=== PATIENT | male | born 1975 | race Caucasian/White ===

== ENCOUNTER 2017-11-06 20:05 | Emergency (ER) | payer OTHER, SELFPAY ==
[2017-11-06 20:09] VITALS: BP 136/95; PULSE 102; RESP 18; TEMP 36.8; O2SAT 100; BMI 39.9
--- NOTE | 2017-11-06 20:22 | XR_ITS ---
XR knee LT 3V Ordering Physician: Gigi Anglin MD Patient Age: 42 years: Male HISTORY: ITS.REASON: painleft knee pain TECHNIQUE: 3 views left knee COMPARISON :03/26/2017 FINDINGS No acute fracture On close inspection on the oblique view there is subtle focal contour irregularity at medial femoral condyle which may reflect a very minor shallow osteochondral irregularity here reflecting early degenerative change. Also note is borderline narrowing at the medial compartment on AP Non- weight-bearing. Joint fluid upper normal to possibly scant increased on lateral view. Lateral compartment unremarkable patella normal position. IMPRESSION: No fracture. . No discrete acute findings However on the oblique view I would suggest a very subtle contour irregularity & subtle undulation, suggestion of a very minor shallow osteochondral irregularity at medial femoral condyle. Likely reflecting early degenerative changes at medial compartment
--- NOTE | 2017-11-06 20:42 | HMH.EDLOEX ---
ED Disposition Clinical Impression: Left knee sprain Qualifiers: Encounter type: initial encounter Involved ligament of knee: unspecified ligament Qualified Code(s): S83.92XA - Sprain of unspecified site of left knee, initial encounter Disposition: Home, Self-Care Condition on Discharge: Good Instructions: DI for Knee Sprain Additional Instructions: limited wt bearing and see pcp and ortho for follow up - Critical Care Critical Care Time: No Attestation: On 11/06/17, the high probability of a clinically significant, sudden or life threatening deterioration of the following system(s) required my full and direct attention, intervention and personal management. The time I documented below is in addition to time spent performing reported procedures but includes the following listed in this critical care notation. Medical Decision Making - Medical Records Medical records reviewed: Yes: I reviewed the patient's medical records. - Regan Inquiry Pt receiving controlled substance: No Vital Signs: 11/06/17 20:09 Temperature 98.3 F Temperature Source Temporal Artery Scan Pulse Rate [Right Radial] 102 H Respiratory Rate 18 Blood Pressure [Right Arm] 136/95 Blood Pressure Mean [Right Arm] 108 Blood Pressure Source [Right Arm] Automatic Cuff Blood Pressure Position [Right Arm] Sitting 02 Sat by Pulse Oximetry 100 Oxygen Delivery Method Room Air Orders (Tests/Meds): ORDERS Category Date Time Status XR knee LT 3V Stat Exams 11/06/17 20:22 Taken - Radiology Data #1 Image(s): Knee Image Reviewed: Yes I reviewed the patient's radiology image Preliminary Findings: No Fracture Seen Lower Extremity Injury HPI - General Chief Complaint: Extremity Injury, Lower Stated Complaint: ao [id number] pain l knee Time Seen by Provider: 11/06/17 20:42 Mode of Arrival: Ambulatory Source of Information: Patient, Significant Other, Medical Record Limitations: No Limitations Description of Symptoms (Recalled from ER Triage Doc. by RN): left knee pain after pop getting on trailer. about 1600, has iced , and rested - History of Present Illness HPI Narrative: lt knee injury with medial aspect popping and then pain with wt bearing and mov - MD complaint: knee injury Onset (ago): hour(s) Injury: Left: knee Type of Injury: hyperextension Place: home Severity: moderate Exacerbating factors: weight bearing, movement, palpation Associated symptoms: snap/pop sensation, able to partially bear weight Other symptoms: none Treatments prior to arrival: NSAIDS - Related Data Home Medications Medication Instructions Recorded Confirmed Amlodipine Besylate [Norvasc 5mg 5 mg PO HS 11/06/17 11/06/17 tablet] Lisinopril [Lisinopril 10mg Tab] 10 mg PO DAILY 11/06/17 11/06/17 Meclizine HCl [Antivert 25mg 25 mg PO DIRECTED 11/06/17 11/06/17 tablet] Oxaprozin [Daypro] 600 mg PO BID 11/06/17 11/06/17 Tamsulosin HCl [Flomax 0.4mg 0.8 mg PO HS 11/06/17 11/06/17 capsule] Tizanidine HCl [Zanaflex] 4 mg PO BID 11/06/17 11/06/17 Allergies Allergy/AdvReac Type Severity Reaction Status Date / Time cortisone [CORTISONE] Allergy Severe S-ANAPHYLAX Unverified 07/20/17 14:25 IS prednisone [PREDNISONE] Allergy Severe S-ANAPHYLAX Unverified 07/20/17 14:25 IS ketorolac [From TORADOL] Allergy Mild NA-NAUSEA/V Unverified 07/20/17 14:25 OMITING tramadol [TRAMADOL] Allergy Mild NA-NAUSEA/V Unverified 07/20/17 14:25 OMITING H History I have reviewed the patient's past medical history: Yes Medical History: Denies:: Cancer, Diabetes Mellitus Type 1, Diabetes Mellitus Type 2, MRSA Amputation: No Fractures: No - Social History Smoking Status: Current every day smoker Tobacco Type: cigarettes # Packs/Day (cigarettes): 1 Alcohol Intake: never - Psychiatric History Expresses thoughts of harming self/others: None Suicide Plan Description: No Plan ROS Obtained: Yes All systems reviewe
--- NOTE | 2017-11-06 20:47 | ED_ITS ---
ED Disposition Clinical Impression: Left knee sprain Qualifiers: Encounter type: initial encounter Involved ligament of knee: unspecified ligament Qualified Code(s): S83.92XA - Sprain of unspecified site of left knee, initial encounter Disposition: Home, Self-Care Condition on Discharge: Good Instructions: DI for Knee Sprain Additional Instructions: limited wt bearing and see pcp and ortho for follow up - Critical Care Critical Care Time: No Attestation: On 11/06/17, the high probability of a clinically significant, sudden or life threatening deterioration of the following system(s) required my full and direct attention, intervention and personal management. The time I documented below is in addition to time spent performing reported procedures but includes the following listed in this critical care notation. Medical Decision Making - Medical Records Medical records reviewed: Yes: I reviewed the patient's medical records. - Regan Inquiry Pt receiving controlled substance: No Vital Signs: 11/06/17 20:09 Temperature 98.3 F Temperature Source Temporal Artery Scan Pulse Rate [Right Radial] 102 H Respiratory Rate 18 Blood Pressure [Right Arm] 136/95 Blood Pressure Mean [Right Arm] 108 Blood Pressure Source [Right Arm] Automatic Cuff Blood Pressure Position [Right Arm] Sitting 02 Sat by Pulse Oximetry 100 Oxygen Delivery Method Room Air Orders (Tests/Meds): ORDERS Category Date Time Status XR knee LT 3V Stat Exams 11/06/17 20:22 Taken - Radiology Data #1 Image(s): Knee Image Reviewed: Yes I reviewed the patient's radiology image Preliminary Findings: No Fracture Seen Lower Extremity Injury HPI - General Chief Complaint: Extremity Injury, Lower Stated Complaint: ao [id number] pain l knee Time Seen by Provider: 11/06/17 20:42 Mode of Arrival: Ambulatory Source of Information: Patient, Significant Other, Medical Record Limitations: No Limitations Description of Symptoms (Recalled from ER Triage Doc. by RN): left knee pain after pop getting on trailer. about 1600, has iced , and rested - History of Present Illness HPI Narrative: lt knee injury with medial aspect popping and then pain with wt bearing and mov - MD complaint: knee injury Onset (ago): hour(s) Injury: Left: knee Type of Injury: hyperextension Place: home Severity: moderate Exacerbating factors: weight bearing, movement, palpation Associated symptoms: snap/pop sensation, able to partially bear weight Other symptoms: none Treatments prior to arrival: NSAIDS - Related Data Home Medications Medication Instructions Recorded Confirmed Amlodipine Besylate [Norvasc 5mg 5 mg PO HS 11/06/17 11/06/17 tablet] Lisinopril [Lisinopril 10mg Tab] 10 mg PO DAILY 11/06/17 11/06/17 Meclizine HCl [Antivert 25mg 25 mg PO DIRECTED 11/06/17 11/06/17 tablet] Oxaprozin [Daypro] 600 mg PO BID 11/06/17 11/06/17 Tamsulosin HCl [Flomax 0.4mg 0.8 mg PO HS 11/06/17 11/06/17 capsule] Tizanidine HCl [Zanaflex] 4 mg PO BID 11/06/17 11/06/17 Allergies Allergy/AdvReac Type Severity Reaction Status Date / Time cortisone [CORTISONE] Allergy Severe S-ANAPHYLAX Unverified 07/20/17 14:25 IS prednisone [PREDNISONE] Allergy Severe S-ANAPHYLAX Unverified 1
[2017-11-06 21:20] VITALS: BP 136/95; PULSE 105; RESP 18; TEMP 36.8; O2SAT 100
== END 2017-11-06 21:23 | disposition home or self-care (01) ==
PROVIDERS: Emergency Provider Emergency Medicine; Family Provider Family Medicine
DX: S83.92XA Sprain of unspecified site of left knee, initial encounter (principal); X50.0XXA Overexertion from strenuous movement or load, initial encounter
CPT/HCPCS: 29505; 73562; 99282

== ENCOUNTER 2018-12-01 12:00 | Emergency (ER) | payer OTHER, SELFPAY ==
[2018-12-01 12:10] VITALS: BP 138/94; PULSE 92; RESP 16; TEMP 36.7; O2SAT 98; BMI 42.3
--- NOTE | 2018-12-01 12:19 | CT_ITS ---
CT abdomen pelvis wo con CLINICAL INDICATION: Severe right flank pain ITS.REASON: severe flank pain ORDERING PHYSICIAN: Gigi Levi MD PATIENT AGE: 43 years COMPARISON: 06/13/2017 TECHNIQUE: Axial images obtained with sagittal and coronal reformats. All CT scans at the facility use one or more dose reduction, viz: automated exposure control, ma/kV adjustment per patient size (including targeted exams where dose is matched to indication, i.e. head), or iterative reconstruction technique. PROCEDURE: Oral Contrast: None IV Contrast: None . FINDINGS: Lower thorax: No acute finding The liver, spleen, adrenal glands, gallbladder, and pancreas have an unremarkable appearance. There are small punctate bilateral renal calculi in both mid and upper pole of both kidneys measuring up to 3 mm in the lower pole on both sides. No hydronephrosis. No ureteral calculi. No evidence of appendicitis. There are right-sided diverticula within the ascending colon but no evidence of diverticulitis. There is diverticulosis also the descending and sigmoid colon with no evidence of diverticulitis. No pelvic mass abnormal fluid collection or focal inflammatory change of the pelvis. There are nondistended fluid-filled loops of small bowel in the abdomen and pelvis. These are nonspecific but could be seen with enteritis. No intestinal obstruction or free air. No acute bony anomalies. IMPRESSION: 1. Nonobstructing bilateral renal calculi. 2. Possible enteritis
[2018-12-01 12:20] LABS: Microscopic, Urine URINE MICROSCOPIC (MICROSCOPIC)
--- NOTE | 2018-12-01 12:20 | HMH.EDGENADL ---
ED Disposition Clinical Impression: Flank pain, Nephrolithiasis Disposition: Home, Self-Care Condition on Discharge: Good Prescriptions: Hydrocodone/Acetaminophen [[place] 7.5-325 Tablet] 1 tab PO QID PRN 3 Days #10 tab PRN Reason: Moderate Pain Promethazine HCl [Phenergan 12.5mg tablet] 12.5 mg PO Q6H PRN 3 Days #10 tab PRN Reason: Nausea And Vomiting Referrals: Xander Avery [Referring] - Time of Disposition: 13:41 - Critical Care Critical Care Time: No Attestation: On , the high probability of a clinically significant, sudden or life threatening deterioration of the following system(s) required my full and direct attention, intervention and personal management. The time I documented below is in addition to time spent performing reported procedures but includes the following listed in this critical care notation. Medical Decision Making - Medical Records Medical records reviewed: Yes: I reviewed the patient's medical records. - Regan Inquiry Pt receiving controlled substance: Yes Regan was queried for this patient: Yes Reference #:: [id number] Risks and benefits of using a controlled substance: were not discussed with pt by me Vital Signs: 12/01/18 12:10 Temperature 98.1 F Temperature Source Oral Pulse Rate [Left Radial] 92 H Respiratory Rate 16 Blood Pressure [Right Arm] 138/94 H Blood Pressure Mean [Right Arm] 108 Blood Pressure Source [Right Arm] Automatic Cuff Blood Pressure Position [Right Arm] Sitting 02 Sat by Pulse Oximetry 98 Oxygen Delivery Method Room Air - Lab Data Lab results reviewed: Yes: I reviewed the patient's lab results. Lab Results 12/01/18 12:05: Urine Color Yellow, Urine Appearance Clear, Urine pH 6.0, Ur Specific [place] 1.020, Urine Protein Negative, Urine Glucose (UA) Negative, Urine Ketones Negative, Urine Blood Negative, Urine Nitrate Negative, Urine Bilirubin Negative, Urine Urobilinogen 0.2, Ur Leukocyte Esterase Negative, Urine WBC 3-5, Urine Bacteria Trace, Urine Mucus Trace 12/01/18 12:10: WBC 7.5, RBC 4.73, Hgb 13.5 L, Hct 41.2 L, MCV 87.2, MCH 28.6, MCHC 32.8, RDW 13.5, Plt Count 184, MPV 10.1, Neut % (Auto) 63.5, Lymph % (Auto) 28.8, [place] % (Auto) 4.9, Eos % (Auto) 2.1, Baso % (Auto) 0.7, Neut # (Auto) 4.8, Lymph # (Auto) 2.2, [place] # (Auto) 0.4, Eos # (Auto) 0.2, Baso # (Auto) 0.1 12/01/18 12:10: Sodium 137, Potassium 3.7, Chloride 101, Carbon Dioxide 27, Anion Gap 12.7, BUN 13, Creatinine 1.01, Estimated Creat Clear 81, Estimated GFR 80, Est GFR ( Amer) 97, Glucose 94, Calcium 9.5, Total Bilirubin 0.3, AST 16, ALT 35, Alkaline Phosphatase 86, Total Protein 7.4, Albumin 4.1, Globulin 3.3 H, Albumin/Globulin Ratio 1.2 Result diagrams: 12/01/18 12:10 12/01/18 12:10 Orders (Tests/Meds): ED MEDICATIONS Discontinued Medications Generic Name Dose Route Start Last Admin Trade Name Vernell PRN Reason Stop Dose Admin Hydromorphone HCl 1 mg 12/01/18 12:37 12/01/18 12:39 Dilaudid 2mg/Ml Syringe IV 12/01/18 12:38 1 mg ONCE ONE Administration Ondansetron HCl 8 mg 12/01/18 12:37 12/01/18 12:39 Zofran 4mg/2ml Vial IV 12/01/18 12:38 8 mg ONCE ONE Administration General Adult HPI - General Stated complaint: kidney stones Time Seen by Provider: 12/01/18 12:20 Mode of Arrival: Ambulatory Source of Information: Patient, Spouse Limitations: No Limitations Description of Symptoms (Recalled from ER Triage Doc. by RN): to ed per pvt car with c/o rt flank pain radiating to rlq starting last night pt seen approx 1 week ago and dx with kidney stones. +nausea, +vomiting. cpta none - History of Present Illness HPI narrative: recent lithotripsy, R sided stones, trouble with a 4 mm calculus which has been slow to pass. appt with urology is in 10-12 days. Pain too great this am - Related Data Home Medications Medication Instructions Recorded Confirmed Amlodipine Besylate [Norvasc 5mg 5 mg PO HS 11/06/17 12/01/18 tablet] L
[2018-12-01 12:25] LABS: Appearance,Urine CLEAR (Clear); Bilirubin,Urine Negative (Negative); Blood, Urine Negative (Negative); Color,Urine YELLOW (Yellow); Glucose,Urine (UA) Negative (Negative); Ketones,Urine Negative (Negative); Leukocyte Esterase,Urine Negative (Negative); Nitrate,Urine Negative (Negative); Protein,Urine Negative (Negative); Urobilinogen,Urine 0.2 EU/dl (0.2)
--- NOTE | 2018-12-01 12:25 | ED_ITS ---
ED Disposition Clinical Impression: Flank pain, Nephrolithiasis Disposition: Home, Self-Care Condition on Discharge: Good Prescriptions: Hydrocodone/Acetaminophen [[place] 7.5-325 Tablet] 1 tab PO QID PRN 3 Days #10 tab PRN Reason: Moderate Pain Promethazine HCl [Phenergan 12.5mg tablet] 12.5 mg PO Q6H PRN 3 Days #10 tab PRN Reason: Nausea And Vomiting Referrals: Xander Avery [Referring] - Time of Disposition: 13:41 - Critical Care Critical Care Time: No Attestation: On , the high probability of a clinically significant, sudden or life threatening deterioration of the following system(s) required my full and direct attention, intervention and personal management. The time I documented below is in addition to time spent performing reported procedures but includes the following listed in this critical care notation. Medical Decision Making - Medical Records Medical records reviewed: Yes: I reviewed the patient's medical records. - Regan Inquiry Pt receiving controlled substance: Yes Regna was queried for this patient: Yes Reference #:: [id number] Risks and benefits of using a controlled substance: were not discussed with pt by me Vital Signs: 12/01/18 12:10 Temperature 98.1 F Temperature Source Oral Pulse Rate [Left Radial] 92 H Respiratory Rate 16 Blood Pressure [Right Arm] 138/94 H Blood Pressure Mean [Right Arm] 108 Blood Pressure Source [Right Arm] Automatic Cuff Blood Pressure Position [Right Arm] Sitting 02 Sat by Pulse Oximetry 98 Oxygen Delivery Method Room Air - Lab Data Lab results reviewed: Yes: I reviewed the patient's lab results. Lab Results 12/01/18 12:05: Urine Color Yellow, Urine Appearance Clear, Urine pH 6.0, Ur Specific [place] 1.020, Urine Protein Negative, Urine Glucose (UA) Negative, Uri ne Ketones Negative, Urine Blood Negative, Urine Nitrate Negative, Urine Bilirubin Negative, Urine Urobilinogen 0.2, Ur Leukocyte Esterase Negative, Urine WBC 3-5, Urine Bacteria Trace, Urine Mucus Trace 12/01/18 12:10: WBC 7.5, RBC 4.73, Hgb 13.5 L, Hct 41.2 L, MCV 87.2, MCH 28.6, MCHC 32.8, RDW 13.5, Plt Count 184, MPV 10.1, Neut % (Auto) 63.5, Lymph % (Auto) 28.8, [place] % (Auto) 4.9, Eos % (Auto) 2.1, Baso % (Auto) 0.7, Neut # (Auto) 4.8, Lymph # (Auto) 2.2, [place] # (Auto) 0.4, Eos # (Auto) 0.2, Baso # (Auto) 0.1 12/01/18 12:10: Sodium 137, Potassium 3.7, Chloride 101, Carbon Dioxide 27, Anio n Gap 12.7, BUN 13, Creatinine 1.01, Estimated Creat Clear 81, Estimated GFR 80, Est GFR ( Amer) 97, Glucose 94, Calcium 9.5, Total Bilirubin 0.3, AST 16, ALT 35, Alkaline Phosphatase 86, Total Protein 7.4, Albumin 4.1, Globulin 3.3 H, Albumin/Globulin Ratio 1.2 Result diagrams: 12/01/18 12:10 12/01/18 12:10 Orders (Tests/Meds): ED MEDICATIONS Discontinued Medications Generic Name Dose Route Start Last Admin Trade Name Vernell PRN Reason Stop Dose Admin Hydromorphone HCl 1 mg 12/01/18 12:37 12/01/18 12:39 Dilaudid 2mg/Ml Syringe IV 12/01/18 12:38 1 mg ONCE ONE Administration Ondansetron HCl 8 mg 12/01/18 12:37 12/01/18 12:39 Zofran 4mg/2ml Vial IV 12/01/18 12:38 8 mg ONCE ONE Administration General Adult HPI - General Stated complaint: kidn
[2018-12-01 12:39] LABS: Mucus,Urine Trace /lpf
[2018-12-01 12:40] LABS: Bacteria,Urine Trace /lpf
[2018-12-01 12:46] LABS: Basophils # 0.1 K/mm3 (0-0.2); Basophils % 0.7 % (0.1-2.0); Eosinophils # 0.2 K/mm3 (0.0-0.4); Eosinophils % 2.1 % (0.1-12.0); Hematocrit 41.2 % (42.0-52.0); Hemoglobin 13.5 g/dL (14.1-18.0); Lymphocytes # 2.2 K/mm3 (0.7-4.5); Lymphocytes % 28.8 % (10-50); Mean Corpuscular HGB Conc 32.8 g/dL (31.8-35.4); Mean Corpuscular Hemoglobin 28.6 pg (27.0-31.2); Mean Corpuscular Volume 87.2 fl (80-94); Mean Platelet Volume 10.1 fl (7.4-10.4); Monocytes # 0.4 K/mm3 (0.1-1.0); Monocytes % 4.9 % (1.7-9.3); Neutrophils # 4.8 K/mm3 (1.8-7.8); Neutrophils % 63.5 % (37.0-80.0); Platelet Count 184 K/mm3 (142-424); Red Blood Count 4.73 M/mm3 (4.60-6.20); Red Cell Distribution Width 13.5 % (11.5-17.5); White Blood Count 7.5 K/mm3 (4.8-10.8)
[2018-12-01 12:55] LABS: Alanine Aminotransferase 35 U/L (12-78); Albumin Level 4.1 gm/dL (3.4-5.0); Albumin/Globulin Ratio 1.2 (1.1-1.8); Alkaline Phosphatase 86 U/L (46-116); Anion Gap 12.7 mEq/L (5-15); Aspartate Amino Transferase 16 U/L (15-37); Bilirubin,Total 0.3 mg/dL (0.2-1.0); Blood Urea Nitrogen 13 mg/dL (7-18); Calcium 9.5 mg/dL (8.5-10.1); Carbon Dioxide 27 mmol/L (21.0-32.0); Chloride 101 mmol/L (98-107); Creatinine Clearance Estimated 81 mL/min (50-200); Creatinine,Serum 1.01 mg/dL (0.70-1.30); Estimated Glomerular Filt Rate 80 ml/min (>60); GFR (African American) 97 ML/MIN (>60); Globulin 3.3 gm/dl (1.3-3.2); Glucose 94 mg/dL (74-106); Potassium 3.7 mmoL/L (3.5-5.1); Sodium 137 mmol/L (136-145); Total Protein,Serum 7.4 gm/dL (6.4-8.2)
[2018-12-01 14:21] VITALS: BP 126/66; PULSE 82; RESP 18; TEMP 36.6; O2SAT 100
== END 2018-12-01 14:23 | disposition home or self-care (01) ==
PROVIDERS: Emergency Provider Emergency Medicine; PCP Family Medicine
DX: N20.0 Calculus of kidney (principal); Z98.890 Other specified postprocedural states; F17.210 Nicotine dependence, cigarettes, uncomplicated; I10 Essential (primary) hypertension
CPT/HCPCS: 74176; 80053; 81001; 85025; 96374; 96375; 99283; J2405

== ENCOUNTER 2019-01-01 18:07 | Emergency (ER) | payer OTHER, SELFPAY ==
[2019-01-01 18:25] VITALS: BP 119/76; PULSE 119; RESP 18; TEMP 36.8; O2SAT 96; BMI 39.9
[2019-01-01 18:33] VITALS: BP 119/76; PULSE 119; RESP 18; TEMP 36.8; O2SAT 96; BMI 39.9
--- NOTE | 2019-01-01 18:33 | XR_ITS ---
XR tibia fibula LT 2V COMPARISON: None HISTORY: Pain TECHNIQUE: 2 views FINDINGS: No fracture or dislocation. No lytic or blastic change. No significant degenerative change. Small calcific density overlies the anterior aspect of the mid tibia and may be due to small phlebolith IMPRESSION: No acute finding
--- NOTE | 2019-01-01 18:41 | HMH.EDUTC ---
[facility] [place] Clinical Impression: Pain of left calf Disposition: Home, Self-Care Condition on Discharge: Good Instructions: DI for Leg Pain, Muscle Strain, Calf Muscle Strain, DI for Muscle Strain Additional Instructions: *Ibuprofen yuko 6 hours with meal as needed for pain/inflammation if your doctor has told you that it is ok for you to take *Not additional anti-inflammatory like motrin, aleve, advil with the above amount of ibuprofen. If you cannot take Motrin./Ibuprofen, You can still take Tylenol every 4 hours as needed if you need something else for pain *Ice 20 minutes every 2 hours for the first 48 hours followed by moist heat every 20 minutes 3-4 times a day to affected area Over the counter Muscle rubs to calf area may help with pain Soaking in hot tub with epson salt may help with pain in your calf *Keep this area active, no movement leads to more stiffness, However take it easy and avoid heavy lifting pushing or pulling *Follow up with you family doctor if no improvement for further treatment They will call you tomorrow with appointment time for outpatient venous doppler, I have requested that they send the results to your family doctor so follow up with them for further treatment and evaluation kayla Return if needed Straight to ER if any life threatening symptoms or trouble breathing or chest pain Return if needed Keep leg elevated may help with swelling and tight feeling Referrals: Gigi Garcia [Primary Care Provider] - As needed (Follow up tomorrow after venous doppler) Time of Disposition: 19:17 Medical Decision Making - Regan Inquiry Pt receiving controlled substance: No Regan was queried for this patient: No Vital Signs: 01/01/19 18:25 01/01/19 18:33 Temperature 98.2 F 98.2 F Temperature Source Oral Oral Pulse Rate [Left Brachial] 119 H 119 H Respiratory Rate 18 18 Blood Pressure [Right Arm] 119/76 119/76 Blood Pressure Mean [Right Arm] 90 90 Blood Pressure Source [Right Arm] Automatic Cuff Automatic Cuff Blood Pressure Position [Right Arm] Sitting Sitting 02 Sat by Pulse Oximetry 96 96 Oxygen Delivery Method Room Air Room Air Orders (Tests/Meds): ORDERS Category Date Time Status XR tibia fibula LT 2V Stat Exams 01/01/19 18:33 Taken - Radiology Data #1 Image(s): Tib/Fib Image Reviewed: Yes I reviewed the patient's radiology image Preliminary Findings: No Fracture Seen - Reevaluation(s) Time: 19:02 Reevaluation #1: Patient given outpatient order for Venous doppler order sent to Resp. and patient advised that they would call him in the morning for appointment [facility] [place] HPI - General Stated complaint: pain left leg Knee down Time Seen by Provider: 01/01/19 18:47 Mode of Arrival: Family Vehicle Source of Information: Patient Limitations: No Limitations Description of Symptoms (Recalled from Triage Doc. by RN): c/o pain and swelling in his left calf that started this morning, denies any injury. No discolor or warmth noted at this time. HEENT Symptoms (Recalled from RN notes): No Resp Symptoms (Recalled from RN notes): No Skin Symptoms (Recalled from RN notes): No MS Symptoms (Recalled from RN notes): Yes Functional Status (Recalled from RN notes): N/A - History of Present Illness Provider Complaint: Patient state that he woke up this morning with pain and tenderness in his left calf area State that he doesn't recall doing anything to hurt his leg State that leg feels swollen and tight State that has pain on and off and feels sore Denies known injury, no bruising - Related Data Home Medications Medication Instructions Recorded Confirmed Amlodipine Besylate [Norvasc 5mg 5 mg PO HS 11/06/17 12/05/18 tablet] Lisinopril [Lisinopril 10mg Tab] 10 mg PO DAILY 11/06/17 12/05/18 Meclizine HCl [Antivert 25mg 25 mg PO DIRECTED 11/06/17 12/05/18 tablet] Oxaprozin [Daypro] 600 mg PO BID 11/06/17 12/05/18 Tamsulosin HCl [Flomax 0.4mg 0.8 mg PO HS 11/06/17 12/05/18 caps
--- NOTE | 2019-01-01 18:47 | ED_ITS ---
[facility] Disposition Clinical Impression: Pain of left calf Disposition: Home, Self-Care Condition on Discharge: Good Instructions: DI for Leg Pain, Muscle Strain, Calf Muscle Strain, DI for Muscle Strain Additional Instructions: *Ibuprofen yuko 6 hours with meal as needed for pain/inflammation if your doctor has told you that it is ok for you to take *Not additional anti-inflammatory like motrin, aleve, advil with the above amoun t of ibuprofen. If you cannot take Motrin./Ibuprofen, You can still take Tylenol every 4 hours as needed if you need something else for pain *Ice 20 minutes every 2 hours for the first 48 hours followed by moist heat every 20 minutes 3-4 times a day to affected area Over the counter Muscle rubs to calf area may help with pain Soaking in hot tub with epson salt may help with pain in your calf *Keep this area active, no movement leads to more stiffness, However take it easy and avoid heavy lifting pushing or pulling *Follow up with you family doctor if no improvement for further treatment They will call you tomorrow with appointment time for outpatient venous doppler, I have requested that they send the results to your family doctor so follow up with them for further treatment and evaluation kayla Return if needed Straight to ER if any life threatening symptoms or trouble breathing or chest pain Return if needed Keep leg elevated may help with swelling and tight feeling Referrals: Gigi Garcia [Primary Care Provider] - As needed (Follow up tomorrow after venous doppler) Time of Disposition: 19:17 Medical Decision Making - Regan Inquiry Pt receiving controlled substance: No Regan was queried for this patient: No Vital Signs: 01/01/19 18:25 01/01/19 18:33 Temperature 98.2 F 98.2 F Temperature Source Oral Oral Pulse Rate [Left Brachial] 119 H 119 H Respiratory Rate 18 18 Blood Pressure [Right Arm] 119/76 119/76 Blood Pressure Mean [Right Arm] 90 90 Blood Pressure Source [Right Arm] Automatic Cuff Automatic Cuff Blood Pressure Position [Right Arm] Sitting Sitting 02 Sat by Pulse Oximetry 96 96 Oxygen Delivery Method Room Air Room Air Orders (Tests/Meds): ORDERS Category Date Time Status XR tibia fibula LT 2V Stat Exams 01/01/19 18:33 Taken - Radiology Data #1 Image(s): Tib/Fib Image Reviewed: Yes I reviewed the patient's radiology image Preliminary Findings: No Fracture Seen - Reevaluation(s) Time: 19:02 Reevaluation #1: Patient given outpatient order for Venous doppler order sent to Resp. and patient advised that they would call him in the morning for appointment [facility] HPI - General Stated complaint: pain left leg Knee down Time Seen by Provider: 01/01/19 18:47 Mode of Arrival: Family Vehicle Source of Information: Patient Limitations: No Limitations Description of Symptoms (Recalled from Triage Doc. by RN): c/o pain and swelling in his left calf that started this morning, denies any injury. No discolor or warmth noted at this time. HEENT Symptoms (Recalled from RN notes): No Resp Symptoms (Recalled from RN notes): No Skin Symptoms (Recalled from RN notes): No MS Symptoms (Recalled from RN notes): Yes Functional Status (Recalled from RN notes): N/A - History of Present Illness Provider Complaint: Patient state that he woke up this morning with pain and tenderness in his left calf area State that he doesn't recall
[2019-01-01 19:18] VITALS: BP 119/76; PULSE 119; RESP 18; TEMP 36.8; O2SAT 96
== END 2019-01-01 19:23 | disposition home or self-care (01) ==
PROVIDERS: Emergency Provider Nurse Practitioner; PCP Family Medicine
DX: M79.662 Pain in left lower leg (principal); F17.210 Nicotine dependence, cigarettes, uncomplicated
CPT/HCPCS: 73590; 99201

== ENCOUNTER → 2019-01-02 12:41 | Outpatient (CLI) | payer OTHER, SELFPAY ==
--- NOTE | 2019-01-02 12:50 | NVE_ITS ---
Venous Exam Indications: 729.5 Pain in limb. IMPRESSIONS 1. There is no evidence of significant Reflux. 2. No evidence of deep or superficial vein thrombosis involving the left lower extremity History: Risk factors: Current tobacco use. Left lower extremity venous duplex evaluation. Doppler flow study including spectral analysis, color and samson scale imaging. Location: Vascular laboratory. Patient status: Outpatient. Tables: Venous flow and imaging: + +-------+ + Location Overall Flow properties + +-------+ + Left common femoral Patent Normal phasicity; spontaneous; normal augmentation; compressible + +-------+ + Left saphenofemoral junction Patent Compressible + +-------+ + Left profunda femoral Patent Compressible + +-------+ + Left femoral Patent Normal phasicity; spontaneous; normal augmentation; compressible + +-------+ + Left greater saphenous Patent Normal phasicity; spontaneous; normal augmentation; compressible + +-------+ + Left popliteal Patent Normal phasicity; spontaneous; normal augmentation; compressible + +-------+ + Left posterior tibial Patent Compressible + +-------+ + Left peroneal Patent Compressible + +-------+ + Left gastrocnemius Patent Compressible + +-------+ + Left soleal Patent Compressible + +-------+ + (Report amended ) Electronically signed by: Evan Manning [id number]
== END ==
PROVIDERS: PCP Internal Medicine Cardiovascular Disease; Visit Provider Nurse Practitioner
DX: M79.662 Pain in left lower leg (principal)
CPT/HCPCS: 93971

== ENCOUNTER 2021-04-02 10:46 | Emergency (ER) | payer OTHER, SELFPAY ==
[2021-04-02 10:47] VITALS: BP 137/75; PULSE 89; RESP 18; TEMP 36.9; O2SAT 100; BMI 39.9
[2021-04-02 11:18] VITALS: BP 137/75; PULSE 97; O2SAT 99
[2021-04-02 11:31] VITALS: BP 138/72; PULSE 89; O2SAT 99
[2021-04-02 12:54] LABS: Microscopic, Urine URINE MICROSCOPIC (MICROSCOPIC)
--- NOTE | 2021-04-02 13:04 | HMH.EDGENADL ---
ED Disposition Clinical Impression: Acute right flank pain Disposition: Home, Self-Care Condition on Discharge: Good Instructions: DI for Acute Pain -- Child Prescriptions: Oxycodone HCl [Oxycodone 5mg tab (IR)] 5 mg PO Q6 #8 tab Transmission Status: Received by [facility] #[id number] Ondansetron [Zofran 4mg ODT] 4 mg PO TIDP PRN #10 tab PRN Reason: Nausea Transmission Status: Received by [facility] #[id number] Referrals: Gigi Garcia MD [Primary Care Provider] - - Critical Care Critical Care Time: No Attestation: On 04/02/21, the high probability of a clinically significant, sudden or life threatening deterioration of the following system(s) required my full and direct attention, intervention and personal management. The time I documented below is in addition to time spent performing reported procedures but includes the following listed in this critical care notation. Medical Decision Making - Medical Records Medical records reviewed: Yes: I reviewed the patient's medical records. - Regan Inquiry Pt receiving controlled substance: No Vital Signs: 04/02/21 10:47 04/02/21 11:18 04/02/21 11:31 Temperature 98.5 F Temperature Source Oral Pulse Rate 97 H 89 Pulse Rate [Left Radial] 89 Respiratory Rate 18 Blood Pressure 137/75 138/72 Blood Pressure [Right Arm] 137/75 Blood Pressure Mean [Right Arm] 95 Blood Pressure Source Blood Pressure Source [Right Arm] Automatic Cuff Blood Pressure Position Blood Pressure Position [Right Arm] Sitting 02 Sat by Pulse Oximetry 100 99 99 Oxygen Delivery Method Room Air 04/02/21 14:03 Temperature 98.5 F Temperature Source Pulse Rate 89 Pulse Rate [Left Radial] Respiratory Rate 20 Blood Pressure 131/77 Blood Pressure [Right Arm] Blood Pressure Mean [Right Arm] Blood Pressure Source Automatic Cuff Blood Pressure Source [Right Arm] Blood Pressure Position Sitting Blood Pressure Position [Right Arm] 02 Sat by Pulse Oximetry Oxygen Delivery Method Room Air - Lab Data Lab Results 04/02/21 11:53: Urine Color Yellow, Urine Appearance Clear, Urine pH 8.0, Ur Specific [place] 1.025, Urine Protein Negative, Urine Glucose (UA) Negative, Urine Ketones Negative, Urine Blood 2+, Urine Nitrate Negative, Urine Bilirubin Negative, Urine Urobilinogen 0.2, Ur Leukocyte Esterase Negative, Urine RBC 5-10, Urine WBC 3-5, Ur Squamous Epith Cells 3-5, Urine Bacteria None Orders (Tests/Meds): ED MEDICATIONS Discontinued Medications Generic Name Dose Route Start Last Admin Trade Name Vernell PRN Reason Stop Dose Admin Oxycodone HCl 10 mg 04/02/21 11:36 04/02/21 11:52 Oxycodone 10mg Extended Release Tab.Er.12h PO 04/02/21 11:37 10 mg ONCE ONE Administration Medical Decision Narrative: Patient is a 46-year-old male presents the ED today for evaluation of right-sided flank pain. Differential diagnosis includes nephrolithiasis, kidney stone associated with urinary tract infection, pyelonephritis, constipation, cholecystitis. Patient is well-appearing on examination, mildly tachycardic, appears to be in pain, but in no other acute distress. Administered 10 mg of oral oxycodone for pain relief, order urinalysis, after shared decision-making with the patient given that he has passed all prior stones without intervention, the patient has had multiple CT scans in the past, he would prefer to go without CT imaging for this presentation. I believe this is reasonable, and patient will follow up with his urologist, and I have encouraged and stressed the importance of this. Will discharge with oxycodone, Flomax, given return precautions return to the ED with inability to urinate, worsening pain, or other symptoms that are concerning. Patient has verbalized understanding with this plan. General Adult HPI - General Chief complaint: PAIN Stated complaint: possible kidney stone Time Seen by Provider: 04/02/21 11:00 Mode of Arrival:
[2021-04-02 13:08] LABS: Appearance,Urine CLEAR (Clear); Bilirubin,Urine Negative (Negative); Blood, Urine 2+ (Negative); Color,Urine YELLOW (Yellow); Glucose,Urine (UA) Negative (Negative); Ketones,Urine Negative (Negative); Leukocyte Esterase,Urine Negative (Negative); Nitrate,Urine Negative (Negative); Protein,Urine Negative (Negative); Specific Gravity, Urine 1.025 (1.005-1.030); Urobilinogen,Urine 0.2 EU/dl (0.2)
[2021-04-02 14:03] VITALS: BP 131/77; PULSE 89; RESP 20; TEMP 36.9; O2SAT 99
== END 2021-04-02 14:04 | disposition home or self-care (01) ==
PROVIDERS: Emergency Provider Student in an Organized Health Care Education/Training Program; PCP Family Medicine
DX: M54.5 Low back pain (principal); R39.198 Other difficulties with micturition; Z88.1 Allergy status to other antibiotic agents; Z88.6 Allergy status to analgesic agent; Z88.8 Allergy status to other drugs, medicaments and biological substances; Z72.0 Tobacco use
CPT/HCPCS: 81001; 99282

== ENCOUNTER 2021-04-20 13:38 | Emergency (ER) | payer OTHER, SELFPAY ==
[2021-04-20 13:40] VITALS: BP 159/107; PULSE 114; RESP 18; TEMP 36.9; O2SAT 98; BMI 39.9
--- NOTE | 2021-04-20 14:00 | CT_ITS ---
PROCEDURE INFORMATION: Exam: CT Abdomen And Pelvis Without Contrast Exam date and time: 04/20/2021 2:00 PM Age: 46 years old Clinical indication: Abdominal pain; Flank; Right; Additional info: R/O stone TECHNIQUE: Imaging protocol: Computed tomography of the abdomen and pelvis without contrast. Radiation optimization: All CT scans at this facility use at least one of these dose optimization techniques: automated exposure control; mA and/or kV adjustment per patient size (includes targeted exams where dose is matched to clinical indication); or iterative reconstruction. COMPARISON: CT ABDOMEN PELVIS WO CON 06/30/2019 6:57 PM FINDINGS: Heart: Small pericardial effusion. Liver: Normal. No mass. Gallbladder and bile ducts: Normal. No calcified stones. No ductal dilation. Pancreas: Normal. No ductal dilation. Spleen: Normal. No splenomegaly. Adrenal glands: Normal. No mass. Kidneys and ureters: Nonobstructing renal calculi bilaterally. No ureteral calculus. Stomach and bowel: Diverticulosis of the rectosigmoid. No diverticulitis. Appendix: Normal appendix. Intraperitoneal space: Unremarkable. No free air. No significant fluid collection. Vasculature: Unremarkable. No abdominal aortic aneurysm. Lymph nodes: Unremarkable. No enlarged lymph nodes. Urinary bladder: Unremarkable as visualized. Reproductive: Unremarkable as visualized. Bones/joints: Unremarkable. No acute fracture. Soft tissues: Unremarkable. IMPRESSION: 1. Nonobstructing renal calculi bilaterally. No ureteral calculus. 2. Normal appendix.
[2021-04-20 14:06] LABS: Microscopic, Urine URINE MICROSCOPIC (MICROSCOPIC)
[2021-04-20 14:08] LABS: Appearance,Urine CLEAR (Clear); Bilirubin,Urine Negative (Negative); Blood, Urine Negative (Negative); Color,Urine STRAW (Yellow); Glucose,Urine (UA) Negative (Negative); Ketones,Urine Negative (Negative); Leukocyte Esterase,Urine Negative (Negative); Nitrate,Urine Negative (Negative); PH,Urine 8.5 (5.0-8.5); Protein,Urine Negative (Negative); Specific Gravity, Urine 1.015 (1.005-1.030); Urobilinogen,Urine 0.2 EU/dl (0.2)
[2021-04-20 14:10] LABS: Basophils # 0.1 K/mm3 (0-0.2); Basophils % 0.6 % (0.1-2.0); Eosinophils # 0.2 K/mm3 (0.0-0.4); Eosinophils % 2.3 % (0.1-12.0); Hematocrit 47.5 % (42.0-52.0); Hemoglobin 15.6 g/dL (14.1-18.0); Lymphocytes % 21.7 % (10-50); Mean Corpuscular HGB Conc 32.9 g/dL (31.8-35.4); Mean Corpuscular Hemoglobin 29.5 pg (27.0-31.2); Mean Corpuscular Volume 89.8 fl (80-94); Mean Platelet Volume 10.7 fl (7.4-10.4); Monocytes # 0.5 K/mm3 (0.1-1.0); Neutrophils # 6.5 K/mm3 (1.8-7.8); Neutrophils % 70.4 % (37.0-80.0); Platelet Count 242 K/mm3 (142-424); Red Blood Count 5.29 M/mm3 (4.60-6.20); Red Cell Distribution Width 13.2 % (11.5-17.5); White Blood Count 9.2 K/mm3 (4.8-10.8)
[2021-04-20 14:15] LABS: WBC,Urine Occasional #/hpf (0-3)
[2021-04-20 14:16] LABS: Chloride 105 mmol/L (98-107); Potassium 4.2 mmoL/L (3.5-5.1); Sodium 141 mmol/L (136-145)
[2021-04-20 14:19] LABS: Alanine Aminotransferase 21 U/L (12-78); Albumin Level 4.3 g/dl (3.5-5.0); Albumin/Globulin Ratio 1.5 (1.1-1.8); Alkaline Phosphatase 118 U/L (38-126); Anion Gap 13.2 mEq/L (5-15); Aspartate Amino Transferase 28 U/L (17-59); Bilirubin,Total 0.1 mg/dl (0.2-1.3); Blood Urea Nitrogen 11 mg/dl (9-20); Carbon Dioxide 27 mmol/L (22.0-30.0); Creatinine Clearance Estimated 141 mL/min (50-200); Estimated Glomerular Filt Rate 80 ml/min (>60); GFR (African American) 97 ML/MIN (>60); Globulin 2.9 g/dL (1.3-3.2); Total Protein,Serum 7.2 g/dl (6.3-8.2)
[2021-04-20 14:20] LABS: Calcium 9.3 mg/dl (8.4-10.2); Glucose 123 mg/dl (74-100)
--- NOTE | 2021-04-20 17:05 | HMH.EDGENADL ---
ED Disposition Clinical Impression: Bilateral ureteral calculi Disposition: Home, Self-Care Condition on Discharge: Good Instructions: Kidney Stones -- Adult Prescriptions: Oxycodone HCl/Acetaminophen [Oxycodone-Acetaminophen 10-325] 1 each PO Q6H 3 Days #10 tab Prescription Printed Ondansetron [Zofran 4mg ODT] 4 mg PO TIDP PRN #12 tab PRN Reason: Nausea Transmission Status: Pending to [id number] Referrals: Gigi Garcia MD [Primary Care Provider] - Time of Disposition: 17:12 - Critical Care Critical Care Time: No Attestation: On 04/20/21, the high probability of a clinically significant, sudden or life threatening deterioration of the following system(s) required my full and direct attention, intervention and personal management. The time I documented below is in addition to time spent performing reported procedures but includes the following listed in this critical care notation. Medical Decision Making - Medical Records Medical records reviewed: Yes: I reviewed the patient's medical records. - Regan Inquiry Pt receiving controlled substance: Yes Regan was queried for this patient: Yes Risks and benefits of using a controlled substance: were discussed with pt by me Vital Signs: 04/20/21 13:40 Temperature 98.4 F Temperature Source Oral Pulse Rate [Radial] 114 H Respiratory Rate 18 Blood Pressure [Right Arm] 159/107 H Blood Pressure Mean [Right Arm] 124 Blood Pressure Position [Right Arm] Sitting 02 Sat by Pulse Oximetry 98 Oxygen Delivery Method Room Air - Lab Data Lab Results 04/20/21 13:00: Urine Color Straw, Urine Appearance Clear, Urine pH 8.5, Ur Specific [place] 1.015, Urine Protein Negative, Urine Glucose (UA) Negative, Urine Ketones Negative, Urine Blood Negative, Urine Nitrate Negative, Urine Bilirubin Negative, Urine Urobilinogen 0.2, Ur Leukocyte Esterase Negative, Urine RBC None, Urine WBC Occasional, Ur Squamous Epith Cells None, Urine Bacteria None 04/20/21 13:57: WBC 9.2, RBC 5.29, Hgb 15.6, Hct 47.5, MCV 89.8, MCH 29.5, MCHC 32.9, RDW 13.2, Plt Count 242, MPV 10.7 H, Neut % (Auto) 70.4, Lymph % (Auto) 21.7, [place] % (Auto) 5.0, Eos % (Auto) 2.3, Baso % (Auto) 0.6, Neut # (Auto) 6.5, Lymph # (Auto) 2.0, [place] # (Auto) 0.5, Eos # (Auto) 0.2, Baso # (Auto) 0.1 04/20/21 13:57: Sodium 141, Potassium 4.2, Chloride 105, Carbon Dioxide 27, Anion Gap 13.2, BUN 11, Creatinine 1.00, Estimated Creat Clear 141, Estimated GFR 80, Est GFR ( Amer) 97, Glucose 123 H, Calcium 9.3, Total Bilirubin 0.1 L, AST 28, ALT 21, Alkaline Phosphatase 118, Total Protein 7.2, Albumin 4.3, Globulin 2.9, Albumin/Globulin Ratio 1.5 Result diagrams: 04/20/21 13:57 04/20/21 13:57 Orders (Tests/Meds): ED MEDICATIONS Discontinued Medications Generic Name Dose Route Start Last Admin Trade Name Freq PRN Reason Stop Dose Admin Oxycodone/Acetaminophen 1 each 04/20/21 16:00 04/20/21 16:10 Oxycodone 10mg W/Apap 325mg Tablet PO 04/20/21 16:01 1 each ONCE ONE Administration - CT Data CT Scan: Abdomen, Pelvis Time Received: 17:[address] Reviewed: Yes: I have reviewed the patient's CT results, I discussed the CT results w/the radiologist, I have viewed the radiologist's interpretation Preliminary Findings: Abnormal (Evidence of bilateral, nonobstructing ureteral calculi with no hydronephrosis. Few stones remaining kidney) Medical Decision Narrative: 46-year-old male with past medical history of nephrolithiasis which is chronic and recurrent who presents to the emergency department with complaints of feeling like he has a kidney stone. Patient was evaluated with a full panel of labs which does not show elevated renal function or leukocytosis. Urine is negative for any infection. Patient had a CT Noncon obtained which shows bilateral, nonobstructing calculi no hydronephrosis. At this time, it is appropriate and safe for patient be discharged home. He states he has alwa
[2021-04-20 17:20] VITALS: BP 153/90; PULSE 90; RESP 20; TEMP 36.9; O2SAT 98
== END 2021-04-20 17:20 | disposition home or self-care (01) ==
PROVIDERS: Emergency Provider Emergency Medicine; PCP Family Medicine
DX: N20.1 Calculus of ureter (principal); I10 Essential (primary) hypertension; F17.210 Nicotine dependence, cigarettes, uncomplicated
CPT/HCPCS: 74176; 80053; 81001; 85025; 99283; J2405

== ENCOUNTER 2021-06-01 18:14 | Emergency (ER) | payer OTHER, SELFPAY ==
[2021-06-01 18:16] VITALS: BP 180/112; PULSE 112; RESP 18; TEMP 37.2; O2SAT 98; BMI 41.5
[2021-06-01 18:29] LABS: Appearance,Urine CLEAR (Clear); Bilirubin,Urine Negative (Negative); Blood, Urine Negative (Negative); Color,Urine YELLOW (Yellow); Glucose,Urine (UA) Negative (Negative); Ketones,Urine Negative (Negative); Leukocyte Esterase,Urine Negative (Negative); Microscopic, Urine URINE MICROSCOPIC (MICROSCOPIC); Nitrate,Urine Negative (Negative); Protein,Urine Negative (Negative); Urobilinogen,Urine 0.2 EU/dl (0.2)
--- NOTE | 2021-06-01 18:35 | CT_ITS ---
PROCEDURE INFORMATION: Exam: CT Abdomen And Pelvis Without Contrast Exam date and time: 06/01/2021 6:35 PM Age: 46 years old Clinical indication: Abdominal pain; Flank; Right; Additional info: R/O kidney stones TECHNIQUE: Imaging protocol: Computed tomography of the abdomen and pelvis without contrast. Radiation optimization: All CT scans at this facility use at least one of these dose optimization techniques: automated exposure control; mA and/or kV adjustment per patient size (includes targeted exams where dose is matched to clinical indication); or iterative reconstruction. COMPARISON: CT ABDOMEN PELVIS WO CON 04/20/2021 2:44 PM FINDINGS: Liver: Normal. No mass. Gallbladder and bile ducts: Normal. No calcified stones. No ductal dilation. Pancreas: Normal. No ductal dilation. Spleen: Normal. No splenomegaly. Adrenal glands: Normal. No mass. Kidneys and ureters: Multiple nonobstructing bilateral renal stones. No hydronephrosis. Stomach and bowel: Diverticulosis in the sigmoid without diverticulitis. No colitis. No small bowel obstruction. Appendix: No evidence of appendicitis. Intraperitoneal space: Unremarkable. No free air. No significant fluid collection. Vasculature: Unremarkable. No abdominal aortic aneurysm. Lymph nodes: Unremarkable. No enlarged lymph nodes. Urinary bladder: Unremarkable as visualized. Reproductive: Unremarkable as visualized. Bones/joints: Unremarkable. No acute fracture. Soft tissues: Unremarkable. IMPRESSION: No acute findings.
[2021-06-01 18:40] LABS: Bacteria,Urine Trace /lpf; Squamous Epithelial Cell,Urine Occasional #/hpf (0-5); WBC,Urine Occasional #/hpf (0-3)
[2021-06-01 18:48] LABS: Alanine Aminotransferase 24 U/L (12-78); Albumin Level 4.6 g/dl (3.5-5.0); Albumin/Globulin Ratio 1.5 (1.1-1.8); Alkaline Phosphatase 116 U/L (38-126); Anion Gap 12.7 mEq/L (5-15); Aspartate Amino Transferase 31 U/L (17-59); Bilirubin,Total 0.3 mg/dl (0.2-1.3); Blood Urea Nitrogen 11 mg/dl (9-20); Calcium 9.5 mg/dl (8.4-10.2); Carbon Dioxide 29 mmol/L (22.0-30.0); Chloride 103 mmol/L (98-107); Creatinine Clearance Estimated 88 mL/min (50-200); Estimated Glomerular Filt Rate 90 ml/min (>60); GFR (African American) 109 ML/MIN (>60); Glucose 102 mg/dl (74-100); Potassium 3.7 mmoL/L (3.5-5.1); Sodium 141 mmol/L (136-145); Total Protein,Serum 7.6 g/dl (6.3-8.2)
[2021-06-01 18:49] LABS: Basophils # 0.1 K/mm3 (0-0.2); Basophils % 0.8 % (0.1-2.0); Eosinophils # 0.2 K/mm3 (0.0-0.4); Eosinophils % 2.1 % (0.1-12.0); Hematocrit 47.9 % (42.0-52.0); Hemoglobin 15.2 g/dL (14.1-18.0); Lymphocytes # 2.2 K/mm3 (0.7-4.5); Lymphocytes % 25.2 % (10-50); Mean Corpuscular HGB Conc 31.7 g/dL (31.8-35.4); Mean Corpuscular Volume 91.3 fl (80-94); Mean Platelet Volume 11.4 fl (7.4-10.4); Monocytes # 0.5 K/mm3 (0.1-1.0); Neutrophils # 5.8 K/mm3 (1.8-7.8); Neutrophils % 65.8 % (37.0-80.0); Platelet Count 226 K/mm3 (142-424); Red Blood Count 5.25 M/mm3 (4.60-6.20); White Blood Count 8.8 K/mm3 (4.8-10.8)
--- NOTE | 2021-06-01 18:56 | HMH.EDGENADL ---
ED Disposition Clinical Impression: Nephrolithiasis Disposition: Home, Self-Care Condition on Discharge: Good Prescriptions: Oxycodone HCl [Oxycodone 5mg tab (IR)] 5 mg PO Q6 #10 tab Transmission Status: Received by [facility] #[id number] Referrals: Gigi Garcia MD [Primary Care Provider] - - Critical Care Critical Care Time: No Attestation: On , the high probability of a clinically significant, sudden or life threatening deterioration of the following system(s) required my full and direct attention, intervention and personal management. The time I documented below is in addition to time spent performing reported procedures but includes the following listed in this critical care notation. Medical Decision Making - Medical Records Medical records reviewed: Yes: I reviewed the patient's medical records. - Regan Inquiry Pt receiving controlled substance: No Vital Signs: 06/01/21 18:16 Temperature 98.9 F Temperature Source Oral Pulse Rate [Radial] 112 H Respiratory Rate 18 Blood Pressure [Right Arm] 180/112 H Blood Pressure Mean [Right Arm] 134 Blood Pressure Position [Right Arm] Sitting 02 Sat by Pulse Oximetry 98 Oxygen Delivery Method Room Air - Lab Data Lab Results 06/01/21 18:25: Urine Color Yellow, Urine Appearance Clear, Urine pH 8.0, Ur Specific [place] 1.020, Urine Protein Negative, Urine Glucose (UA) Negative, Urine Ketones Negative, Urine Blood Negative, Urine Nitrate Negative, Urine Bilirubin Negative, Urine Urobilinogen 0.2, Ur Leukocyte Esterase Negative, Urine RBC None, Urine WBC Occasional, Ur Squamous Epith Cells Occasional, Urine Bacteria Trace 06/01/21 18:35: WBC 8.8, RBC 5.25, Hgb 15.2, Hct 47.9, MCV 91.3, MCH 29.0, MCHC 31.7 L, RDW 14.0, Plt Count 226, MPV 11.4 H, Neut % (Auto) 65.8, Lymph % (Auto) 25.2, [place] % (Auto) 6.0, Eos % (Auto) 2.1, Baso % (Auto) 0.8, Neut # (Auto) 5.8, Lymph # (Auto) 2.2, [place] # (Auto) 0.5, Eos # (Auto) 0.2, Baso # (Auto) 0.1 06/01/21 18:35: Sodium 141, Potassium 3.7, Chloride 103, Carbon Dioxide 29, Anion Gap 12.7, BUN 11, Creatinine 0.90, Estimated Creat Clear 88, Estimated GFR 90, Est GFR ( Amer) 109, Glucose 102 H, Calcium 9.5, Total Bilirubin 0.3, AST 31, ALT 24, Alkaline Phosphatase 116, Total Protein 7.6, Albumin 4.6, Globulin 3.0, Albumin/Globulin Ratio 1.5 Result diagrams: 06/01/21 18:35 06/01/21 18:35 Orders (Tests/Meds): ED MEDICATIONS Generic Name Dose Route Start Last Admin Trade Name Freq PRN Reason Stop Dose Admin Sodium Chloride 1,000 mls @ 999 mls/hr 06/01/21 18:45 06/01/21 18:38 Sod Chlor 0.9% 1000ml Bag IV 06/01/21 19:45 999 mls/hr .[id number] ANNELIESE Administration Discontinued Medications Generic Name Dose Route Start Last Admin Trade Name Freq PRN Reason Stop Dose Admin Hydromorphone HCl 1 mg 06/01/21 18:36 06/01/21 18:37 Hydromorphone 2mg/Ml Syringe IV 06/01/21 18:37 1 mg ONCE ONE Administration Ondansetron HCl 4 mg 06/01/21 18:36 06/01/21 18:37 Ondansetron 4mg/2ml Vial IV 06/01/21 18:37 4 mg ONCE ONE Administration Medical Decision Narrative: Patient is a 46-year-old male with a history of kidney stone presents the ED today with right-sided flank pain. Patient is well-appearing on initial evaluation in no acute distress vital signs stable. We will obtain a CT abdomen and pelvis stone protocol for further evaluation, urinalysis, administer IV pain medications as needed. CT scan obtained, an independent interpretation there are multiple kidney stones inside the renal pelvis of the right kidney, did not visualize any within the ureter, will await radiology interpretation. Patient stable on reassessment CT interpretation by radiologist as there is no evidence of renal stone within the ureter, patient states that in the past he has had pain similar to this when there were no stones in the ureter. Patient does not have any pain medications to take at home, we will refer to urology, an
[2021-06-01 20:28] VITALS: BP 180/112; PULSE 108; RESP 16; TEMP 37; O2SAT 99
== END 2021-06-01 20:31 | disposition home or self-care (01) ==
PROVIDERS: Emergency Provider Student in an Organized Health Care Education/Training Program; PCP Family Medicine
DX: N20.0 Calculus of kidney (principal); Z87.442 Personal history of urinary calculi; F17.210 Nicotine dependence, cigarettes, uncomplicated
CPT/HCPCS: 74176; 80053; 81001; 85025; 96365; 96375; 99283; J2405

== ENCOUNTER 2021-06-23 16:32 | Emergency (ER) | payer OTHER, SELFPAY ==
[2021-06-23 16:43] VITALS: BMI 39.9
--- NOTE | 2021-06-23 16:45 | CT_ITS ---
PROCEDURE INFORMATION: Exam: CT Abdomen And Pelvis Without Contrast Exam date and time: 06/23/2021 4:45 PM Age: 46 years old Clinical indication: Abdominal pain; Other: Bilateral flank pain; Additional info: Flank pain- history of kidney stones TECHNIQUE: Imaging protocol: Computed tomography of the abdomen and pelvis without contrast. Radiation optimization: All CT scans at this facility use at least one of these dose optimization techniques: automated exposure control; mA and/or kV adjustment per patient size (includes targeted exams where dose is matched to clinical indication); or iterative reconstruction. COMPARISON: CT ABDOMEN PELVIS WO CON 06/01/2021 6:50 PM FINDINGS: Liver: Fatty liver. Gallbladder and bile ducts: Within normal limits. Pancreas: Within normal limits. Spleen: Within normal limits. Adrenal glands: Within normal limits. Kidneys and ureters: Multiple non-obstructing renal stones bilaterally, measuring up to 9 mm. No ureteral stones. No hydronephrosis. Stomach and bowel: Colonic diverticulosis without inflammatory changes. Appendix: Appendix is normal. Intraperitoneal space: No free fluid. No pneumoperitoneum. Vasculature: Mild amount of calcified and non-calcified arterial atherosclerosis. Lymph nodes: No enlarged lymph nodes by CT criteria. Urinary bladder: Within normal limits. Reproductive: Nonspecific prostate calcifications, unchanged. Bones/joints: No acute osseous abnormality. Soft tissues: Unremarkable. IMPRESSION: 1. No acute findings in the abdomen or pelvis. 2. Multiple non-obstructing kidney stones. 3. Colonic diverticulosis without evidence of acute diverticulitis. 4. Fatty liver.
--- NOTE | 2021-06-23 17:00 | PC.NURSE ---
pt to radiology at this time
[2021-06-23 17:03] VITALS: BP 143/90; PULSE 94; RESP 18; TEMP 36.7; O2SAT 100; BMI 39.9
--- NOTE | 2021-06-23 17:06 | PC.NURSE ---
returned form radiology at this time
[2021-06-23 17:11] LABS: Microscopic, Urine URINE MICROSCOPIC (MICROSCOPIC)
[2021-06-23 17:14] LABS: Basophils # 0.1 K/mm3 (0-0.2); Basophils % 1.1 % (0.1-2.0); Eosinophils # 0.1 K/mm3 (0.0-0.4); Eosinophils % 0.8 % (0.1-12.0); Hematocrit 46.7 % (42.0-52.0); Hemoglobin 15.3 g/dL (14.1-18.0); Lymphocytes # 1.8 K/mm3 (0.7-4.5); Lymphocytes % 21.3 % (10-50); Mean Corpuscular HGB Conc 32.8 g/dL (31.8-35.4); Mean Corpuscular Hemoglobin 29.4 pg (27.0-31.2); Mean Corpuscular Volume 89.6 fl (80-94); Monocytes # 0.3 K/mm3 (0.1-1.0); Neutrophils # 6.1 K/mm3 (1.8-7.8); Neutrophils % 72.7 % (37.0-80.0); Platelet Count 215 K/mm3 (142-424); Red Blood Count 5.21 M/mm3 (4.60-6.20); Red Cell Distribution Width 13.9 % (11.5-17.5); White Blood Count 8.4 K/mm3 (4.8-10.8)
[2021-06-23 17:17] LABS: Appearance,Urine CLEAR (Clear); Bilirubin,Urine Negative (Negative); Blood, Urine Negative (Negative); Color,Urine STRAW (Yellow); Glucose,Urine (UA) Negative (Negative); Ketones,Urine Negative (Negative); Leukocyte Esterase,Urine Negative (Negative); Nitrate,Urine Negative (Negative); Protein,Urine Negative (Negative); Specific Gravity, Urine 1.015 (1.005-1.030); Urobilinogen,Urine 0.2 EU/dl (0.2)
[2021-06-23 17:31] VITALS: BP 123/78; PULSE 87; O2SAT 98
[2021-06-23 17:32] LABS: Alanine Aminotransferase 32 U/L (12-78); Albumin Level 4.7 g/dl (3.5-5.0); Albumin/Globulin Ratio 1.7 (1.1-1.8); Alkaline Phosphatase 117 U/L (38-126); Anion Gap 10.1 mEq/L (5-15); Aspartate Amino Transferase 42 U/L (17-59); Bilirubin,Total 0.3 mg/dl (0.2-1.3); Blood Urea Nitrogen 10 mg/dl (9-20); Calcium 9.7 mg/dl (8.4-10.2); Carbon Dioxide 31 mmol/L (22.0-30.0); Chloride 102 mmol/L (98-107); Creatinine Clearance Estimated 156 mL/min (50-200); Estimated Glomerular Filt Rate 90 ml/min (>60); GFR (African American) 109 ML/MIN (>60); Globulin 2.7 g/dL (1.3-3.2); Glucose 104 mg/dl (74-100); Potassium 4.1 mmoL/L (3.5-5.1); Sodium 139 mmol/L (136-145); Total Protein,Serum 7.4 g/dl (6.3-8.2)
[2021-06-23 17:35] LABS: PH,Urine >= 9.0 (5.0-8.5)
[2021-06-23 17:47] LABS: Squamous Epithelial Cell,Urine Occasional #/hpf (0-5); WBC,Urine Occasional #/hpf (0-3)
[2021-06-23 17:48] LABS: Mucus,Urine Trace /lpf
--- NOTE | 2021-06-23 18:26 | [facility].EDGENADL ---
ED Disposition Clinical Impression: Kidney stones Disposition: Home, Self-Care Condition on Discharge: Good Instructions: DI for Acute Pain -- Adult Referrals: Gigi Garcia MD [Primary Care Provider] - - Critical Care Critical Care Time: No Attestation: On 06/23/21, the high probability of a clinically significant, sudden or life threatening deterioration of the following system(s) required my full and direct attention, intervention and personal management. The time I documented below is in addition to time spent performing reported procedures but includes the following listed in this critical care notation. Medical Decision Making - Regan Inquiry Pt receiving controlled substance: Yes Regan was queried for this patient: Yes Risks and benefits of using a controlled substance: were discussed with pt by me Vital Signs: 06/23/21 17:03 06/23/21 17:31 Temperature 98.0 F Temperature Source Oral Pulse Rate 87 Pulse Rate [Right Radial] 94 H Respiratory Rate 18 Blood Pressure 123/78 Blood Pressure [Right Arm] 143/90 H Blood Pressure Mean 99 Blood Pressure Mean [Right Arm] 107 Blood Pressure Source [Right Arm] Automatic Cuff Blood Pressure Position [Right Arm] Sitting 02 Sat by Pulse Oximetry 100 98 Oxygen Delivery Method Room Air - Lab Data Lab Results 06/23/21 17:00: Urine Color Straw, Urine Appearance Clear, Urine pH >= 9.0 H, Ur Specific Oil Trough 1.015, Urine Protein Negative, Urine Glucose (UA) Negative, Urine Ketones Negative, Urine Blood Negative, Urine Nitrate Negative, Urine Bilirubin Negative, Urine Urobilinogen 0.2, Ur Leukocyte Esterase Negative, Urine WBC Occasional, Ur Squamous Epith Cells Occasional, Urine Mucus Trace 06/23/21 17:00: WBC 8.4, RBC 5.21, Hgb 15.3, Hct 46.7, MCV 89.6, MCH 29.4, MCHC 32.8, RDW 13.9, Plt Count 215, MPV 11.0 H, Neut % (Auto) 72.7, Lymph % (Auto) 21.3, Benzie % (Auto) 4.0, Eos % (Auto) 0.8, Baso % (Auto) 1.1, Neut # (Auto) 6.1, Lymph # (Auto) 1.8, Benzie # (Auto) 0.3, Eos # (Auto) 0.1, Baso # (Auto) 0.1 06/23/21 17:00: Sodium 139, Potassium 4.1, Chloride 102, Carbon Dioxide 31 H, Anion Gap 10.1, BUN 10, Creatinine 0.90, Estimated Creat Clear 156, Estimated GFR 90, Est GFR ( Amer) 109, Glucose 104 H, Calcium 9.7, Total Bilirubin 0.3, AST 42, ALT 32, Alkaline Phosphatase 117, Total Protein 7.4, Albumin 4.7, Globulin 2.7, Albumin/Globulin Ratio 1.7 Result diagrams: 06/23/21 17:00 06/23/21 17:00 Orders (Tests/Meds): ED MEDICATIONS Generic Name Dose Route Start Last Admin Trade Name Freq PRN Reason Stop Dose Admin Sodium Chloride 1,000 mls @ 999 mls/hr 06/23/21 17:00 06/23/21 16:50 Sod Chlor 0.9% 1000ml Bag IV 06/23/21 18:00 999 mls/hr .[id number] ANNELIESE Administration Discontinued Medications Generic Name Dose Route Start Last Admin Trade Name Freq PRN Reason Stop Dose Admin Morphine Sulfate 4 mg 06/23/21 16:47 06/23/21 16:50 Morphine 4mg/Ml Syringe IV 06/23/21 16:48 4 mg ONCE ONE Administration Ondansetron HCl 4 mg 06/23/21 16:47 06/23/21 16:50 Ondansetron 4mg/2ml Vial IV 06/23/21 16:48 4 mg ONCE ONE Administration Medical Decision Narrative: DDx includes but not limited to MARTIN, nephrolithiasis, UTI, electrolyte abnormality. HDS, NAD, well appearing. Given morphine here in ED, IVF bolus. Labs including cbc, cmp not acutely actionable. UA not consistent with UTI. CT A/P w/o contrast shows nonobstructing renal stones up to 9 mm without hydronephrosis. Kidney func General Adult HPI - General Chief complaint: PAIN Stated complaint: kidney stones Time Seen by Provider: 06/23/21 18:05 Mode of Arrival: Ambulatory Limitations: No Limitations Description of Symptoms (Recalled from ER Triage Doc. by RN): Pt has a hx of kidney stones. He stated that he started with bilateral flank pain that radiates toward his stomach. He rates his pain a 8/10. - History of Present Illness HPI narrative: 46 yo male w/ hx of
[2021-06-23 19:40] VITALS: BP 106/66; PULSE 82; RESP 18; TEMP 36.7; O2SAT 98
== END 2021-06-23 19:42 | disposition home or self-care (01) ==
PROVIDERS: Emergency Provider Student in an Organized Health Care Education/Training Program; PCP Family Medicine
DX: N20.0 Calculus of kidney (principal); F17.210 Nicotine dependence, cigarettes, uncomplicated
CPT/HCPCS: 74176; 80053; 81001; 85025; 96365; 96375; 99283; J2405

== ENCOUNTER 2022-06-28 12:08 | Emergency (ER) | payer OTHER, SELFPAY ==
[2022-06-28 12:08] VITALS: BP 139/87; PULSE 103; RESP 18; TEMP 36.5; O2SAT 100; BMI 38.2
--- NOTE | 2022-06-28 12:22 | PC.NURSE ---
pt has urinal at bs to attempt to collect urine specimen
--- NOTE | 2022-06-28 12:25 | CT_ITS ---
PROCEDURE INFORMATION: Exam: CT Abdomen And Pelvis Without Contrast Exam date and time: 06/28/2022 12:34 PM Age: 47 years old Clinical indication: Abdominal pain; Flank; Right; Additional info: R flank pain, R/O kidney stone TECHNIQUE: Imaging protocol: Computed tomography of the abdomen and pelvis without contrast. Radiation optimization: All CT scans at this facility use at least one of these dose optimization techniques: automated exposure control; mA and/or kV adjustment per patient size (includes targeted exams where dose is matched to clinical indication); or iterative reconstruction. COMPARISON: CT ABDOMEN PELVIS WO CON 06/23/2021 5:01 PM FINDINGS: Heart: Stable, nodular pericardial thickening, grossly unchanged compared to multiple prior studies dating to CT 06/01/2021. Diaphragm: Small hiatal hernia. Liver: Normal. No mass. Gallbladder and bile ducts: Layering biliary sludge. No findings to suggest acute cholecystitis. Pancreas: Normal. No ductal dilation. Spleen: Normal. No splenomegaly. Adrenal glands: Normal. No mass. Kidneys and ureters: Multiple, nonobstructive bilateral renal stones, measuring up to 5 mm in right kidney 2 mm in the left kidney. No hydroureteronephrosis. Stomach and bowel: Colonic diverticulosis without inflammatory changes. Appendix: The appendix is visualized appears grossly normal. Intraperitoneal space: Unremarkable. No free air. No significant fluid collection. Vasculature: Aortoiliac atherosclerosis. No aneurysm. Lymph nodes: Unremarkable. No enlarged lymph nodes. Urinary bladder: Unremarkable as visualized. Reproductive: Prostatomegaly. Bones/joints: Unremarkable. No acute fracture. Soft tissues: Unremarkable. IMPRESSION: 1. Stable, nodular pericardial thickening, grossly unchanged compared to multiple prior studies dating to CT 06/01/2021. 2. Small hiatal hernia. 3. Colonic diverticulosis without inflammatory changes. 4. Multiple, nonobstructive bilateral renal stones, measuring up to 5 mm in the right kidney and 2 mm in the left kidney. No hydroureteronephrosis.
[2022-06-28 12:40] LABS: Basophils # 0.1 K/mm3 (0-0.2); Basophils % 1.1 % (0.1-2.0); Eosinophils # 0.2 K/mm3 (0.0-0.4); Eosinophils % 2.6 % (0.1-12.0); Hematocrit 48.7 % (42.0-52.0); Hemoglobin 15.7 g/dL (14.1-18.0); Lymphocytes # 1.8 K/mm3 (0.7-4.5); Lymphocytes % 23.8 % (10-50); Mean Corpuscular HGB Conc 32.2 g/dL (31.8-35.4); Mean Corpuscular Hemoglobin 28.7 pg (27.0-31.2); Mean Corpuscular Volume 89.3 fl (80-94); Monocytes # 0.4 K/mm3 (0.1-1.0); Monocytes % 5.5 % (1.7-9.3); Platelet Count 219 K/mm3 (142-424); Red Blood Count 5.46 M/mm3 (4.60-6.20); Red Cell Distribution Width 13.6 % (11.5-17.5); White Blood Count 7.5 K/mm3 (4.8-10.8)
--- NOTE | 2022-06-28 13:03 | PC.NURSE ---
Pt is up walking around room, pt states he would like to leave the vs monitors off until his pain gets under control. pt is requesting to speak with MD garza, explained to pt that he would be in as soon as he can.
[2022-06-28 13:13] LABS: Chloride 100 mmol/L (98-107); Sodium 139 mmol/L (136-145)
[2022-06-28 13:14] LABS: Potassium 4.4 mmoL/L (3.5-5.1)
[2022-06-28 13:16] LABS: Alanine Aminotransferase 20 U/L (12-78); Albumin Level 4.3 g/dl (3.5-5.0); Albumin/Globulin Ratio 1.6 (1.1-1.8); Alkaline Phosphatase 113 U/L (38-126); Anion Gap 11.4 mEq/L (5-15); Aspartate Amino Transferase 30 U/L (17-59); Bilirubin,Total 0.3 mg/dl (0.2-1.3); Blood Urea Nitrogen 10 mg/dl (9-20); Calcium 9.6 mg/dl (8.4-10.2); Carbon Dioxide 32 mmol/L (22.0-30.0); Creatinine Clearance Estimated 133 mL/min (50-200); Estimated Glomerular Filt Rate 80 ml/min (>60); GFR (African American) 97 ML/MIN (>60); Globulin 2.7 g/dL (1.3-3.2); Glucose 82 mg/dl (74-100)
[2022-06-28 13:31] VITALS: BP 121/67; PULSE 82; RESP 20; O2SAT 97
[2022-06-28 13:34] LABS: Microscopic, Urine URINE MICROSCOPIC (MICROSCOPIC)
[2022-06-28 13:54] LABS: Appearance,Urine CLEAR (Clear); Bilirubin,Urine Negative (Negative); Blood, Urine Negative (Negative); Color,Urine YELLOW (Yellow); Glucose,Urine (UA) Negative (Negative); Ketones,Urine Negative (Negative); Leukocyte Esterase,Urine Negative (Negative); Nitrate,Urine Negative (Negative); Protein,Urine TRACE (Negative); Specific Gravity, Urine 1.015 (1.005-1.030); Urobilinogen,Urine 0.2 EU/dl (0.2)
[2022-06-28 14:00] VITALS: BP 128/97; PULSE 89; RESP 18; O2SAT 97
[2022-06-28 14:09] LABS: Squamous Epithelial Cell,Urine Occasional #/hpf (0-5)
--- NOTE | 2022-06-28 14:24 | [facility].EDGENADL ---
Discharge Plan Disposition Patient Disposition: Home, Self-Care Condition: Good Prescriptions Prescriptions: New hydrocodone-acetaminophen 5-325 mg tablet 1 tab PO Q6H PRN (Reason: pain) Qty: 5 0RF No Action amlodipine 5 MG tablet 5 mg PO HS tamsulosin 0.4 MG capsule 0.8 mg PO HS meclizine 25 MG tablet 25 mg PO DIRECTED lisinopril 10 MG tablet 10 mg PO DAILY oxaprozin [Daypro] 600 MG tablet 600 mg PO BID tizanidine [Zanaflex] 4 MG capsule 4 mg PO BID ondansetron 4 MG tablet,disintegrating 4 mg PO TIDP PRN (Reason: Nausea) Qty: 10 0RF oxycodone 5 MG tablet 5 mg PO Q6 Qty: 8 0RF oxycodone 5 MG tablet 5 mg PO Q6 Qty: 10 0RF oxycodone-acetaminophen 1 EACH tablet 1 each PO Q6H 3 Days Qty: 10 0RF ondansetron 4 MG tablet,disintegrating 4 mg PO TIDP PRN (Reason: Nausea) Qty: 12 0RF Referrals Follow up/Referrals: Provider,Referral, MD [Primary Care Provider] - See instructions Activity Restrictions/Add. Instructions Additional Instructions/Restrictions: Follow-up with your urologist as scheduled. Return for worsening pain, fever or other concerns. Clinical Impressions Clinical Impression: Renal colic Instructions Patient Instructions: Kidney Stones -- Adult Discharge ED Provider: Darren Mendes Adult [facility] General Chief complaint: PAIN Stated complaint: possible kidney stone, rt side pain Time Seen by Provider: 06/28/22 13:19 Mode of Arrival: Ambulatory Source of Information: Patient Limitations: No Limitations Description of Symptoms (Recalled from ER Triage Doc. by RN): Pt c/o R flank pain radiating around to R lower abd, reporst pain began yesterday. Pt report difficulty with urination and painful urination. Pt reports has had kidney stones in the past, reports had lithotripsy on L side in may. Pt urologist is dr. adams at [facility]. Related Data Home Medications Medication Instructions Recorded Confirmed amlodipine 5 mg tablet 5 mg PO HS htn 11/06/17 06/30/19 lisinopril 10 mg tablet 10 mg PO DAILY htn 11/06/17 06/30/19 meclizine 25 mg tablet 25 mg PO DIRECTED vertigo 11/06/17 06/30/19 oxaprozin 600 mg tablet (Daypro) 600 mg PO BID shoulders 11/06/17 06/30/19 tamsulosin 0.4 mg capsule 0.8 mg PO HS Kidney stones 11/06/17 06/30/19 tizanidine 4 mg capsule (Zanaflex) 4 mg PO BID shoulders 11/06/17 06/30/19 Previous Rx's Medication Instructions Recorded ondansetron 4 mg disintegrating 4 mg PO TIDP PRN Nausea #10 tabs 04/02/21 tablet oxycodone 5 mg tablet 5 mg PO Q6 #8 tabs 04/02/21 ondansetron 4 mg disintegrating 4 mg PO TIDP PRN Nausea #12 tabs 04/20/21 tablet oxycodone-acetaminophen 10 mg-325 1 each PO Q6H 3 days #10 tabs 04/20/21 mg tablet oxycodone 5 mg tablet 5 mg PO Q6 #10 tabs 06/01/21 hydrocodone 5 mg-acetaminophen 325 1 tab PO Q6H PRN pain #5 tabs 06/28/22 mg tablet Allergies Allergy/AdvReac Type Severity Reaction Status Date / Time cortisone [CORTISONE] Allergy Severe S-ANAPHYLAX Verified 11/06/17 21:02 IS prednisone [PREDNISONE] Allergy Severe S-ANAPHYLAX Verified 11/06/17 21:02 IS ketorolac [From TORADOL] Allergy Mild Hives Verified 11/25/18 10:07 tramadol [TRAMADOL] Allergy Mild Hives Verified 11/25/18 10:07 [facility] PFS Social History Smoking Status: Never smoker alcohol intake: never substance use type: denies use current occupational status: employed Travel in the last 8 weeks: None ROS Obtained: Yes All systems reviewed & no additional complaints except as documented Physical Exam General General appearance: alert and in no apparent distress Respiratory Respiratory exam: Present normal lung sounds bilaterally Cardiovascular Cardiovascular exam: Present regular rate and normal rhythm Neurological Exam Neurological exam: Present alert and oriented X3 Medical Decision Making Regan Inquiry Pt receiving controlled substance: No Vital Signs:
[2022-06-28 14:31] VITALS: BP 127/89; PULSE 86; RESP 20; O2SAT 97
[2022-06-28 14:45] VITALS: BP 127/89; PULSE 89; RESP 18; TEMP 36.5; O2SAT 95
== END 2022-06-28 14:45 | disposition home or self-care (01) ==
PROVIDERS: Emergency Provider Emergency Medicine
DX: R10.31 Right lower quadrant pain (principal); R30.0 Dysuria; R11.0 Nausea; Z79.1 Long term (current) use of non-steroidal anti-inflammatories (NSAID); Z79.899 Other long term (current) drug therapy; Z88.6 Allergy status to analgesic agent; Z88.8 Allergy status to other drugs, medicaments and biological substances; Z87.442 Personal history of urinary calculi
CPT/HCPCS: 74176; 80053; 81001; 85025; 96374; 96375; 99285; J2405